=== PATIENT | female | born 1965 | race Caucasian/White ===

== ENCOUNTER → 2025-05-27 08:31 | Outpatient (REF) | payer BC, SELFPAY | LOC: HWWDC 08:31 | PROVIDERS: ATTENDING PHYSICIAN Family Medicine | DX: Z12.31 Encounter for screening mammogram for malignant neoplasm of breast (principal); M54.50 Low back pain, unspecified | CPT/HCPCS: 72110; 77063; 77067 ==

== ENCOUNTER → 2025-06-14 10:29 | Outpatient (REF) | payer BC, SELFPAY | LOC: HWRAD 10:29 | PROVIDERS: ATTENDING PHYSICIAN Family Medicine | DX: M19.012 Primary osteoarthritis, left shoulder (principal) | CPT/HCPCS: 73030 ==